=== PATIENT | female | born 1975 | race Caucasian/White ===

== ENCOUNTER 2021-11-03 13:25 | Emergency (ER) | payer SELFPAY ==
[~2021-11-03] VITALS: Ht 170.2 cm; Wt 104.3 kg
[2021-11-03] MEDS ORDERED: THERAFLU FLU &1 EAC1 PO (13:46)
[2021-11-03] MEDS ORDERED: IBUPROFEN IB200 MG PO (13:46)
[2021-11-03] MEDS ORDERED: AZITHROMYCIN250 MG PO (13:46)
== END 2021-11-03 13:35 | disposition home or self-care (01) ==
LOC: FSED 13:32
DX: R05.9 Cough, unspecified (principal); J40 Bronchitis, not specified as acute or chronic; J06.9 Acute upper respiratory infection, unspecified
CPT/HCPCS: 83518; 99283

== ENCOUNTER 2022-03-30 12:52 | Emergency (ER) | payer SELFPAY ==
[~2022-03-30] VITALS: Ht 172.7 cm; Wt 104.3 kg
[~2022-03-30 12:52] MED LIST: AZITHROMYCIN250 MG PO; IBUPROFEN IB200 MG PO; THERAFLU FLU &1 EAC1 PO
[2022-03-30] MEDS ORDERED: AMOX TR-K CLV1 EAC2 PO (13:35)
== END 2022-03-30 14:00 | disposition home or self-care (01) ==
LOC: FSED 13:20
DX: J32.9 Chronic sinusitis, unspecified (principal); U07.1 COVID-19; J06.9 Acute upper respiratory infection, unspecified
CPT/HCPCS: 99283; U0002

== ENCOUNTER 2022-08-05 12:13 | Emergency (ER) | payer SELFPAY ==
[~2022-08-05] VITALS: Ht 172.7 cm; Wt 113.0 kg
[~2022-08-05 12:13] MED LIST changes: +AMOX TR-K CLV1 EAC2 PO
[2022-08-05] MEDS ORDERED: BUSPIRONE HCL30 MG (13:01)
[2022-08-05] MEDS ORDERED: TRAZODONE HCL300 MG PO (13:01)
[2022-08-05] MEDS ORDERED: ZYPREXA5 MG PO (13:01)
[2022-08-05] MEDS ORDERED: PROZAC20 MG PO (13:01)
[2022-08-05] MEDS ORDERED: METFORMIN HCL500 MG PO (13:01)
[2022-08-05] MEDS ORDERED: NAPROSYN500 MG PO (15:30)
[2022-08-05] MEDS ORDERED: MACROBID 100 M100 MG PO (15:31)
== END 2022-08-05 15:19 | disposition home or self-care (01) ==
LOC: FSED 12:16
DX: M25.562 Pain in left knee (principal); M17.12 Unilateral primary osteoarthritis, left knee; E11.9 Type 2 diabetes mellitus without complications; F41.9 Anxiety disorder, unspecified; F32.A Depression, unspecified
CPT/HCPCS: 81003; 81025; 99283

== ENCOUNTER 2022-11-13 14:42 | Emergency (ER) | payer SELFPAY ==
[~2022-11-13] VITALS: Ht 172.7 cm; Wt 115.8 kg
[~2022-11-13 14:42] MED LIST changes: +BUSPIRONE HCL30 MG; +CEFDINIR300 MG PO; +IBUPROFEN200 MG PO; +MACROBID 100 M100 MG PO; +MECLIZINE HCL12.5 MG PO; +METFORMIN HCL500 MG PO; +NAPROSYN500 MG PO; +ONDANSETRON ODT4 MG PO; +PROZAC20 MG PO; +TRAZODONE HCL300 MG PO; +ZYPREXA5 MG PO
[2022-11-13] MEDS ORDERED: KETOROLAC TROMETHAMINE 30 MG/ML VIAL IV STA (15:45)
[2022-11-13] MEDS ORDERED: ONDANSETRON HCL INJ 2MG/ML 2ML 2 MG/ML VIAL IV STA (15:45)
[2022-11-13] MEDS ORDERED: SODIUM CHLORIDE 0.9% 1000ML 1,000 ML IV ONE (15:45)
[2022-11-13] MEDS ORDERED: ONDANSETRON HCL INJ 2MG/ML 2ML 2 MG/ML VIAL ONE (15:54)
[2022-11-13] MEDS ORDERED: SODIUM CHLORIDE 0.9% 1000ML 1,000 ML ONE (15:55)
[2022-11-13] MEDS ORDERED: KETOROLAC TROMETHAMINE 30 MG/ML VIAL ONE (15:55)
[2022-11-13] MEDS ORDERED: METOCLOPRAMIDE HCL 10 MG/2ML VIAL IV ONE (16:45)
[2022-11-13] MEDS ORDERED: METOCLOPRAMIDE HCL 10 MG/2ML VIAL ONE (16:53)
[2022-11-13] MEDS ORDERED: METHOCARBAMOL750 MG PO (17:30)
[2022-11-13] MEDS ORDERED: IBUPROFEN600 MG PO (17:30)
[2022-11-13] MEDS ORDERED: ONDANSETRON ODT4 MG PO (17:31)
== END 2022-11-13 17:35 | disposition home or self-care (01) ==
LOC: FSED 14:52
DX: S86.812A Strain of other muscle(s) and tendon(s) at lower leg level, left leg, initial encounter (principal); X58.XXXA Exposure to other specified factors, initial encounter; R11.0 Nausea; E11.9 Type 2 diabetes mellitus without complications; K76.0 Fatty (change of) liver, not elsewhere classified; K57.90 Diverticulosis of intestine, part unspecified, without perforation or abscess without bleeding; F41.9 Anxiety disorder, unspecified; F32.A Depression, unspecified
CPT/HCPCS: 74176; 80053; 81003; 81025; 85025; 96374; 96375; 99284; J1885; J2405; J2765; J7030